=== PATIENT | female | born 2000 | race Caucasian/White ===

== ENCOUNTER 2020-03-22 11:31 | Emergency (ER) | payer BC, SELFPAY ==
--- NOTE | 2020-03-22 11:38 | ED.GENADULT ---
HPI - General Adult General Chief complaint: Upper Respiratory Infection Stated complaint: sore throat Time Seen by Provider: 03/22/20 11:38 Source: patient Mode of arrival: ambulatory Limitations: no limitations History of Present Illness HPI narrative: 19-year-old female patient presents to the [facility] with complaints of sore throat congestion for the past 2 to 3 days. Denies any fevers. Denies any chest pain shortness of breath. Patient states she was diagnosed with COVID-19 back in December 26. Patient states that she got a rapid test done yesterday and it came back positive however patient is not out of the 90-day. At this time. Patient states that she did get a flu shot this year. Patient states that she is more concerned that this might be strep due to the fact that she has had more strep before in the past Related Data Home Medications Medication Instructions Recorded Confirmed norethindrone-e.estradiol-iron 1 tablet DAILY 03/22/20 03/22/20 [Aurovela 24 Fe] Allergies Allergy/AdvReac Type Severity Reaction Status Date / Time No Known Allergies Allergy Verified 03/22/20 11:34 Review of Systems Review of Systems: Narrative: CONSTITUTIONAL: Denies fever, chills, or sweats. EYES: Denies visual changes, redness, or discharge. ENT: Denies rhinorrhea, positive congestion, positive sore throat, or otalgia. CARDIOVASCULAR: Denies chest pain, palpitations, or edema. RESPIRATORY: Denies cough or dyspnea. GASTROINTESTINAL: Denies abdominal pain, nausea, vomiting, or diarrhea. GENITOURINARY: Denies dysuria or hematuria. SKIN: Denies rash or itching. MUSCULOSKELETAL: Denies back pain, joint pain, or myalgia. NEUROLOGIC: Positive headache, denies numbness, or weakness. PSYCHIATRIC: Denies anxiety or depression. REPLACED BY [facility] Past Medical History Medical History (Updated 03/22/20 @ 11:52 by JAS Andrade) Lab test positive for detection of COVID-19 virus November 2019 Surgical History Surgical History (Updated 03/22/20 @ 11:40 by JAS Andrade) History of tonsillectomy Comments At the time of my signature I agree with nursing past medical history, surgical, social, and family history. There is no relevant family history pertinent to the presenting complaint. Exam Narrative: Exam Narrative: GENERAL: Well-appearing, well-nourished, and in no acute distress. HEAD: Normocephalic, atraumatic. No tenderness noted to frontal maxillary sinuses on palpation EYES: PERRLA and EOMI. ENT: Nares with erythema and edema noted bilaterally, no rhinorrhea or epistaxis. Mucous membranes moist. Posterior pharynx with slight erythema but no tonsils present. Bilateral TMs are clear no erythema or foreign bodies in the canal NECK: Supple. No lymphadenopathy CHEST: Clear to auscultation. No respiratory distress. HEART: Regular rate and rhythm. No murmur heard. Normal peripheral pulses. ABDOMEN: Soft, nontender, nondistended, normal active bowel sounds. EXTREMITIES: Normal range of motion. No edema. SKIN: Warm, dry, no rash. NEURO: No focal deficits. Alert and oriented x3. Course Reevaluation(s) Reevaluation #1: Reevaluated patient notified her that she is strep positive. Discussed with patient we will discharge her home with some antibiotics for the strep infection and she can take Tylenol and ibuprofen as needed for any body aches, chills or pain. Discussed with patient I do not think that she has reinfection of COVID-19 and most likely she had a positive due to the fact that the still been within the 90 days of her last infection. Discussed with patient that she should treat herself as a strep however she does have worsening symptoms despite being on antibiotics I would encourage her to follow-up with her primary doctor or go the ER. Patient verbalized understanding denies any other questions or concerns at this time. Date: 03/22/20 Time: 11:54 Vital Signs Vital signs: Vital Signs Temperature 36.6 C 03/22
[2020-03-22 11:47] VITALS: BP 125/86; PULSE 91; RESP 20; TEMP 36.6; O2SAT 100
[2020-03-22 11:51] VITALS: BP 125/86; PULSE 91; RESP 20; TEMP 36.6; O2SAT 100
== END 2020-03-22 11:55 | disposition home or self-care (01) ==
PROVIDERS: Emergency Provider Nurse Practitioner Family
DX: J02.0 Streptococcal pharyngitis (principal); Z86.19 Personal history of other infectious and parasitic diseases
CPT/HCPCS: 87880; 99213; G0463

== ENCOUNTER 2020-04-04 10:56 | Emergency (ER) | payer BC, SELFPAY ==
[2020-04-04 11:07] VITALS: BP 129/76; PULSE 93; RESP 20; TEMP 36.8; O2SAT 99
--- NOTE | 2020-04-04 11:14 | ED.URI ---
HPI - URI/Sore Throat General Chief Complaint: Upper Respiratory Infection Stated Complaint: sore throat Time Seen by Provider: 04/04/20 11:14 Source: patient and RN notes reviewed History of Present Illness HPI Narrative: 19-year-old female presents to urgent care with complaints of sinus congestion, sore throat, chills, generalized body aches since yesterday. States that she was diagnosed on March 22 with strep throat and only took 5 to [address] Bernabe primary care History of anxiety depression. Related Data Home Medications Medication Instructions Recorded Confirmed norethindrone-e.estradiol-iron 1 tablet PO DAILY 04/04/20 04/04/20 [Aurovela 24 Fe] Allergies Allergy/AdvReac Type Severity Reaction Status Date / Time No Known Allergies Allergy Verified 04/04/20 11:14 Review of Systems Review of Systems: Narrative: CONSTITUTIONAL: Denies fever. Positive for chills and body aches EYES: Denies visual changes, redness, or discharge. ENT:+ rhinorrhea, congestion, sore throat, or otalgia. CARDIOVASCULAR: Denies chest pain, palpitations, or edema. RESPIRATORY: Denies cough or dyspnea. GASTROINTESTINAL: Denies abdominal pain, nausea, vomiting, or diarrhea. GENITOURINARY: Denies dysuria or hematuria. SKIN: Denies rash or itching. MUSCULOSKELETAL: Denies back pain, joint pain, or myalgia. NEUROLOGIC: Denies headache, numbness, or weakness. All other systems reviewed are negative, except as documented in HPI. [facility] Past Medical History Medical History (Updated 04/04/20 @ 11:27 by Chel Fuller) Lab test positive for detection of COVID-19 virus November 2019 Surgical History Surgical History (Updated 03/22/20 @ 11:40 by JAS Andrade) History of tonsillectomy Comments At the time of my signature, I reviewed and agree with the nursing past medical, surgical, social, and family history. There is no relevant family history pertinent to the patient complaint. Exam Const: General: alert and ill appearing Nutritional Appearance: well nourished and obese Orientation/consciousness: patient oriented x3 Limitations: no limitations HENMT: Ears: TM's normal bilaterally General nose exam: Nasal discharge present Face and sinus: normal facial exam and sinus tenderness Mouth: Yes moist mucous membranes Teeth and gingiva: dentition normal Other: large amount of postnasal drip. Bilateral nasal tuberants red and boggy Eyes: Conjunctivae: conjunctivae normal Pupils: Equal, round and reactive pupils present Direct Ophthalmoscopy: no photophobia and No photophobia Neck: Neck: normal visual inspection, no lymphadenopathy and no meningeal signs Chest: Chest palpation & inspection: normal inspection of the chest Resp: Effort & Inspection: normal respiratory effort Auscultation: clear to auscultation bilaterally Cardio: Rate: regular rate Rhythm: regular rhythm Heart sounds: no murmurs GI: Inspection: non-distended GI Palp: Yes Soft to palpation and No Tenderness to palpation present (GI) : General: No no CVA tenderness Skin: General skin exam: normal color and no jaundice Rashes: no rashes Neuro: General: patient oriented x3, moves all extremities and no focal motor deficits Speech: normal speech Gait exam (Neuro): Normal gait present Extrem: General: normal to inspection and no edema Psych: Appearance: grossly normal and well kempt Mental Status: mental status grossly normal Affect: normal affect Attitude: cooperative Thought content: Yes Normal thought content present Course Vital Signs Vital signs: Vital Signs Temperature 98.3 F 04/04/20 11:07 Pulse Rate 93 04/04/20 11:07 Respiratory Rate 20 04/04/20 11:07 Blood Pressure 129/76 04/04/20 11:07 Pulse Oximetry 99 04/04/20 11:07 Temperature 98.3 F 04/04/20 11:07 Pulse Rate 93 04/04/20 11:07 Respiratory Rate 20 04/04/20 11:07 Blood Pressure 129/76 04/04/20 11:07 Pulse Oxime
== END 2020-04-04 11:31 | disposition home or self-care (01) ==
PROVIDERS: Emergency Provider Nurse Practitioner
DX: J01.90 Acute sinusitis, unspecified (principal); J02.9 Acute pharyngitis, unspecified
CPT/HCPCS: 87081; 87804; 87880; 99213; G0463

== ENCOUNTER 2020-09-24 14:24 | Emergency (ER) | payer BC, SELFPAY ==
--- NOTE | ~2020-09-24 | XR_ITS ---
EXAMINATION: XR knee LT min 4V DATE: 09/24/2020 14:52 INDICATION: Left knee injury. TECHNIQUE: 5 views of left knee were obtained. COMPARISON: None. FINDINGS: Bone alignment is normal. No fracture. Joint spaces are well maintained. There is no knee j oint effusion. There is anterior soft tissue swelling. IMPRESSION: 1. No fracture. Reviewed, dictated and finalized at location A. IMPRESSION: 1. No fracture.
[2020-09-24 14:35] VITALS: BP 139/94; PULSE 93; RESP 16; TEMP 36.8; O2SAT 99
--- NOTE | 2020-09-24 14:40 | ED.LOWEXIN ---
HPI - Extremity Injury (Lower) General Chief Complaint: Extremity Injury, Lower Stated Complaint: Lt knee Source: patient Mode of arrival: ambulatory Limitations: no limitations History of Present Illness HPI Narrative: Patient is a 20-year-old female who presents complaining of left knee pain. Patient reports she was celebrating her 20st birthday last p.m. and fell hitting her left knee on concrete. She reports increased pain with palpation and ambulation. She denies taking any [id number]-opb-pbtqjtx medications prior to arrival. She denies all other injuries. Patient has no significant medical history. MD complaint: knee injury Related Data Home Medications Medication Instructions Recorded Confirmed norethindrone-e.estradiol-iron 1 tablet PO DAILY 04/04/20 04/04/20 [Aurovela 24 Fe] Allergies Allergy/AdvReac Type Severity Reaction Status Date / Time No Known Allergies Allergy Verified 04/04/20 11:14 Review of Systems Review of Systems: Narrative: CONSTITUTIONAL: Denies fever, chills, or sweats. EYES: Denies visual changes, redness, or discharge. ENT: Denies rhinorrhea, congestion, sore throat, or otalgia. CARDIOVASCULAR: Denies chest pain, palpitations, or edema. RESPIRATORY: Denies cough or dyspnea. GASTROINTESTINAL: Denies abdominal pain, nausea, vomiting, or diarrhea. GENITOURINARY: Denies dysuria or hematuria. SKIN: Denies rash or itching. MUSCULOSKELETAL: Reports left knee pain NEUROLOGIC: Denies headache, numbness, dizziness, or weakness. PSYCHIATRIC: Denies anxiety or depression. PMFSH Past Medical History Medical History Lab test positive for detection of COVID-19 virus November 2019 Surgical History Surgical History History of tonsillectomy Social History Social History (Updated 09/24/20 @ 14:42 by JAS Milian) Smoking status: Current every day smoker Tobacco type: e-cigarettes/vaping Alcohol intake: current Alcohol use details: Social Substance use: current Substance use type: marijuana Living arrangements: with family Occupation/Education: occupation Gender identity (if verbalized by the patient): Female Exam Narrative: Exam Narrative: GENERAL: Well-appearing, well-nourished, and in no acute distress. HEAD: Normocephalic, atraumatic. EYES: EOMI. No redness or drainage. Conjunctiva are normal. ENT: Mucous membranes pink and moist. CHEST: No respiratory distress. HEART: Regular rate and rhythm. EXTREMITIES: Mild edema ecchymosis to the left knee, no visible deformity, full range of motion, distal sensation intact SKIN: Warm, dry, no rash. NEURO: No focal deficits. Alert and oriented x3. Gait steady. PSYCH: Normal affect. No signs of depression or anxiety. Course Vital Signs Vital signs: Vital Signs Temperature 36.8 C 09/24/20 14:35 Pulse Rate 93 09/24/20 14:35 Respiratory Rate 16 09/24/20 14:35 Blood Pressure 139/94 H 09/24/20 14:35 Pulse Oximetry 99 09/24/20 14:35 Temperature 36.8 C 09/24/20 14:35 Pulse Rate 93 09/24/20 14:35 Respiratory Rate 16 09/24/20 14:35 Blood Pressure 139/94 H 09/24/20 14:35 Pulse Oximetry 99 09/24/20 14:35 Reviewed-patient is informed that they may have pre-hypertension or hypertension based on a blood pressure reading. I recommend the patient call the primary care provider listed on their discharge instructions or a physician of their choice this week to arrange follow-up for further evaluation of possible pre-hypertension or hypertension. MDM - Extremity Injury (Lower) MDM Narrative Medical decision making narrative: Patient's x-ray is negative for acute injury. Discussed with patient most musculoskeletal. Veto wrap applied, discussed pain medication as well as use of ice for comfort. Patient agrees with plan of care. Patient is stable for discharge home with outpatient foll
== END 2020-09-24 15:11 | disposition home or self-care (01) ==
PROVIDERS: Emergency Provider Nurse Practitioner
DX: M25.562 Pain in left knee (principal); F17.200 Nicotine dependence, unspecified, uncomplicated; Z86.16 Personal history of COVID-19
CPT/HCPCS: 73564; 99213; G0463

== ENCOUNTER → 2020-11-16 12:20 | Outpatient (CLI) | payer BC, SELFPAY ==
--- NOTE | ~2020-11-16 | XR_ITS ---
XR lumbar spine 2-3V DATE: 11/16/2020 12:59 INDICATION: Lumbar back pain, bilateral sacroiliac pain TECHNIQUE: Standing AP, lateral and coned lateral lumbosacral views COMPARISON: None FINDINGS: There is mild levoscoliosis of the lower thoracic and lumbar spine. No fracture or bone destruction is detected. The lumbar pedicles are intact. Lumbar and lumbosacral i nterspaces are well preserved. The sacroiliac joints appear normal. IMPRESSION: Mild levoscoliosis Reviewed, dictated and finalized at location A. IMPRESSION: Mild levoscoliosis
--- NOTE | ~2020-11-16 | XR_ITS ---
XR thoracic spine 2V DATE: 11/16/2020 12:59 INDICATION: Back pain TECHNIQUE: Standing AP, lateral and swimmer views COMPARISON: None FINDINGS: Mild dextroscoliosis. No fracture or dislocation or bone destruction. The thoracic pedicles are intact. No paraspinal soft tissue thickening. Thoracic interspaces appear preserved. IMPRESSION: Mild dextro scoliosis Reviewed, dictated and finalized at location A. IMPRESSION: Mild dextro scoliosis
--- NOTE | ~2020-11-16 | XR_ITS ---
XR_CERV2-3V_CR DATE: 11/16/2020 12:59 INDICATION: Cervical, thoracic and lumbar back pain. Bilateral sacroiliac pain. TECHNIQUE: Standing AP, lateral, open-mouth and swimmer views COMPARISON: None FINDINGS: There is straightening of the cervical spine. C1 and C2 are normally aligned and the odonto id process is intact. No fracture or dislocation or locked facet. No prevertebral soft tissue swellin g. Cervical interspaces are preserved. IMPRESSION: Straightening of the cervical spine, which may be due to muscle spasm Reviewed, dictated and finalized at Location A. Reviewed, dictated and finalized at location A. IMPRESSION: Straightening of the cervical spine, which may be due to muscle spa sm
--- NOTE | ~2020-11-16 | XR_ITS ---
XR pelvis 1-2V DATE: 11/16/2020 12:59 INDICATION: Bilateral sacroiliac pain. Back pain. TECHNIQUE: Standing AP pelvis COMPARISON: None FINDINGS: The pubic symphysis and sacroiliac joints are intact. Hip joint spaces are symmetric and we ll preserved. No pelvic fracture or bone destruction. No hip fracture or dislocation is detected. IMPRESSION: Negative pelvis Reviewed, dictated and finalized at location A. IMPRESSION: Negative pelvis
== END ==
PROVIDERS: Visit Provider Chiropractor
DX: M54.2 Cervicalgia (principal); M54.5 Low back pain; M54.6 Pain in thoracic spine; M41.86 Other forms of scoliosis, lumbar region; M41.84 Other forms of scoliosis, thoracic region; M53.82 Other specified dorsopathies, cervical region
CPT/HCPCS: 72040; 72070; 72100; 72170

== ENCOUNTER 2020-12-19 13:07 | Emergency (ER) | payer BC, SELFPAY ==
[2020-12-19 13:21] VITALS: BP 145/93; PULSE 98; RESP 18; TEMP 37.3; O2SAT 100
--- NOTE | 2020-12-19 13:41 | ED.URI ---
HPI - URI/Sore Throat General Chief Complaint: Upper Respiratory Infection Stated Complaint: flu like symptoms Source: patient and RN notes reviewed Limitations: no limitations History of Present Illness HPI Narrative: The vaccinated patient, occasional drinker/vaper student recruiter, presents with infectious symptoms. Patient states she has 1/2-week history since the weekend myalgias with headache and large muscle cramps associated with definite loose, diarrheal stools. Symptoms are mild, partially relieved with Motrin. No fever measured, cough, sore throat , vomiting; no loss of taste/smell, CP, rash, S OB. Related Data Home Medications Medication Instructions Recorded Confirmed drospirenone-ethinyl estradiol 1 tablet PO DAILY 12/19/20 12/19/20 Allergies Allergy/AdvReac Type Severity Reaction Status Date / Time No Known Allergies Allergy Verified 12/19/20 13:38 Review of Systems Review of Systems: The patient has been informed that they may have pre-hypertension or Hypertension based on a BP reading in the department. I recommend that the patient call the primary care provider listed on their discharge instructions or a physician of their choice this week to arrange follow up for further evaluation of possible pre-hypertension or Hypertension General/Constitutional: No weight loss,fever Eyes: N0: Redness,discharge Ears/Nose/Throat: No: Epistaxis,ear discharge Respiratory: Denies: Hemoptysis Gastrointestinal: No Vomiting, Bleeding-rectal Skin: No Lumps, eruption Neurologic: No Focal Weakness,Sz Hematologic: Denies: Petechiae/Purpura Psychiatric: No: Suicida ideationl All Other Systems: Reviewed and Negative [facility] Past Medical History Medical History Lab test positive for detection of COVID-19 virus November 2019 Surgical History Surgical History History of tonsillectomy Social History Social History (Updated 09/24/20 @ 14:42 by JAS Milian) Smoking status: Current every day smoker Tobacco type: e-cigarettes/vaping Alcohol intake: current Alcohol use details: Social Substance use: current Substance use type: marijuana Gender identity (if verbalized by the patient): Female Comments At time of signature, agree with nursing past medical, surgical, social and family history. There is no relevant family history pertinent to the presenting complaint Exam Narrative: General Appearance: Well appearing, overweight/ Well nourished EYE: PERRLA, Conjunctiva clear Ears: Auditory canal normal, TM normal Nose: Rhinorrhea, Mucousal erythema Mouth/Throat: MM moist, Uvula midline, Pharyngeal erythema Neck: Supple, No adenopathy Respiratory: No respiratory distress, Breath sounds equal, Clear to auscultation Cardiovascular: RRR, No JVD Musculoskeletal: Non tender, Normal strength Skin: Warm, Dry Neurological: A&O x3, CN II-XII intact Psychiatric: Normal mood, Normal affect Course Vital Signs Vital signs: Vital Signs Temperature 99.1 F 12/19/20 13:21 Pulse Rate 98 12/19/20 13:21 Respiratory Rate 18 12/19/20 13:21 Blood Pressure 145/93 H 12/19/20 13:21 Pulse Oximetry 100 12/19/20 13:21 Temperature 99.1 F 12/19/20 13:21 Pulse Rate 98 12/19/20 13:21 Respiratory Rate 18 12/19/20 13:21 Blood Pressure 145/93 H 12/19/20 13:21 Pulse Oximetry 100 12/19/20 13:21 MDM - URI/Sore Throat Lab Data Labs: Lab Results 12/19/20 Range/Units 13:37 POC SARS CoV-2 Ag Negative (Negative) Discharge Plan Discharge Clinical Impression: Diarrhea Qualifiers: Diarrhea type: unspecified type Qualified Code(s): R19.7 - Diarrhea, unspecified Patient Disposition: Home, Self-Care Condition: Stable Additional Instructions: You may try OTC preparations -like Imodium for diarrhea, NSAID for WOLF , chills etc.
== END 2020-12-19 14:00 | disposition home or self-care (01) ==
PROVIDERS: Emergency Provider Emergency Medicine; PCP Hospitalist
DX: R19.7 Diarrhea, unspecified (principal); Z20.822 Contact with and (suspected) exposure to COVID-19; F17.200 Nicotine dependence, unspecified, uncomplicated; Z86.16 Personal history of COVID-19
CPT/HCPCS: 87426; 99213; C9803; G0463

== ENCOUNTER → 2020-12-20 08:09 | Outpatient (CLI) | payer BC, SELFPAY ==
[2020-12-20 17:06] LABS: SARS-CoV-2 RNA PCR Negative
== END ==
PROVIDERS: PCP Hospitalist; Visit Provider Emergency Medicine
DX: R19.7 Diarrhea, unspecified (principal); Z20.822 Contact with and (suspected) exposure to COVID-19
CPT/HCPCS: C9803; U0003; U0005

== ENCOUNTER 2021-08-02 10:50 | Emergency (ER) | payer BC, SELFPAY ==
[2021-08-02 11:22] VITALS: BP 123/75; PULSE 95; RESP 18; TEMP 36.6; O2SAT 100
--- NOTE | 2021-08-02 11:53 | ED.GENADULT ---
HPI - General Adult General Chief complaint: Upper Respiratory Infection Stated complaint: Cough,Headache,Fatigue,Sore Throat Source: patient Mode of arrival: ambulatory Limitations: no limitations History of Present Illness HPI narrative: Patient is a 20-year-old female presents to the [facility] via POV for evaluation of cold symptoms that have been present for 5 days. Additionally, she reports sore throat, chills, dry cough, and rhinorrhea. Swallowing worsens throat pain. She had a negative home COVID test. 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 Denies known exposure to sick contacts. Patient is fully vaccinated against COVID-19 but influenza. Related Data Home Medications Medication Instructions Recorded Confirmed drospirenone-ethinyl estradiol 1 tablet PO DAILY 12/19/20 08/02/21 quetiapine 100 mg PO DAILY 08/02/21 08/02/21 Allergies Allergy/AdvReac Type Severity Reaction Status Date / Time No Known Allergies Allergy Verified 08/02/21 11:21 Review of Systems Review of Systems: Denies fever, change in appetite, poor p.o. intake, weight loss, sinus problems, nasal congestion, ear pain, abdominal pain, nausea, vomiting, diarrhea, shortness of breath, cyanosis, hemoptysis, chest pain, heart palpitations. PENDING SALE TO [facility] Past Medical History Medical History Lab test positive for detection of COVID-19 virus November 2019 Surgical History Surgical History History of tonsillectomy Social History Social History Smoking status: Current every day smoker Tobacco type: e-cigarettes/vaping Alcohol intake: current Alcohol use details: Social Substance use: current Substance use type: marijuana Gender identity (if verbalized by the patient): Female Comments I have reviewed and agree with the patient's past medical, surgical, social, and family hx as documented by the RN. There is no relevant family history pertinent to the presenting complaint. Exam Narrative: GENERAL: Well-appearing, well-nourished, and in no acute distress. HEAD: Normocephalic, atraumatic. No sinus tenderness or facial swelling appreciated. EYES: PERRLA and EOMI. No evidence of erythema, swelling, or drainage. ENT: Bilateral external ears and ear canals normal. Bilateral TMs are normal.No TM perforation. Nares clear, no rhinorrhea or epistaxis. Bilateral turbinates without erythema/ swelling. Mucous membranes moist and pink. Uvula is midline without erythema and swelling. Mild erythema noted to posterior pharynx and bilateral tonsil otherwise normal. Breath odor and voice normal. NECK: Supple. No Lymphadenopathy or nuchal rigidity appreciated. CHEST: Bilateral lung nova are clear to auscultation. No respiratory distress. No evidence of cough or pleuritic cp upon examination. HEART: Regular rate and rhythm. No murmur, gallop, or rub heard. EXTREMITIES: Normal range of motion. No edema. SKIN: Warm, dry, no rash. NEURO: No focal deficits. Alert and oriented x3. Course Course Level of Care: Express Care Visit Vital Signs Vital signs: Vital Signs Temperature 97.9 F 08/02/21 11:22 Pulse Rate 95 08/02/21 11:22 Respiratory Rate 18 08/02/21 11:22 Blood Pressure 123/75 08/02/21 11:22 Pulse Oximetry 100 08/02/21 11:22 Temperature 97.9 F 08/02/21 11:22 Pulse Rate 95 08/02/21 11:22 Respiratory Rate 18 08/02/21 11:22 Blood Pressure 123/75 08/02/21 11:22 Pulse Oximetry 100 08/02/21 11:22 Reviewed Medical Decision Making Differential Diagnosis Differential Diagnosis: Allergic rhinitis, ABRS, acute viral sinusitis, strep pharyngitis, nasopharyngitis, bronchitis, pneumonia, AOM, otitis externa, viral URI, influenza, covid-19 Medical Recor
== END 2021-08-02 12:08 | disposition home or self-care (01) ==
PROVIDERS: Emergency Provider Nurse Practitioner Family; PCP Hospitalist
DX: J06.9 Acute upper respiratory infection, unspecified (principal); F17.290 Nicotine dependence, other tobacco product, uncomplicated
CPT/HCPCS: 87081; 87804; 87880; 99213; G0463

== ENCOUNTER 2021-12-21 18:42 | Emergency (ER) | payer BC, SELFPAY ==
--- NOTE | 2021-12-21 18:43 | ED.URI ---
HPI - URI/Sore Throat General Chief Complaint: Upper Respiratory Infection Stated Complaint: Sore Throat,Dizziness,Fatigue Time Seen by Provider: 12/21/21 18:43 Source: patient Mode of arrival: ambulatory Limitations: no limitations History of Present Illness HPI Narrative: Ms. Cavazos is a 21-year-old female patient presenting to the clinic today with complaints of sore throat, dizziness, and fatigue x1 day. She reports her symptoms began yesterday. States that she has had fever as well. Has had a history of mono and COVID in 2019. History of tonsillectomy. 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 Patient denies any rash, headache, visual changes, shortness of breath, chest pain, palpitations, nausea, vomiting, diarrhea, constipation, abdominal pain, or any urinary issues. [facility] Past Medical History Medical History Lab test positive for detection of COVID-19 virus November 2019 Surgical History Surgical History H/O wisdom tooth extraction History of tonsillectomy Family History Family History Other Diabetes mellitus Hypertension Leukemia Social History Social History Smoking status: Current every day smoker Tobacco type: e-cigarettes/vaping Alcohol intake: current Alcohol use details: Social Substance use: current Substance use type: marijuana Gender identity (if verbalized by the patient): Female Comments At the time of my signature, I reviewed and agree with the nursing past medical, surgical, social, and family history. There is no relevant family history pertinent to the patient complaint. Exam Narrative: General: Well-developed, obese, in no apparent distress Head: Normocephalic, atraumatic Eyes: Pupils equally round and reactive to light bilaterally, EOM intact, sclera and conjunctive clear, no discharge, lids normal Ears: TMs intact and dull, ear canals clear, no drainage, grossly hearing normal. Nose: Nares patent, clear nasal discharge, mild inflammation, no sinus tenderness. Mouth: Oropharynx without lesions or masses, good dentition, MMM. Oropharynx red, postnasal drip Neck: Supple, trachea midline, enlargement of anterior cervical nodes, no thyroid masses or goiter palpable. Cardio: Regular rate and rhythm, s1 and s2 normal, no murmur appreciated. Resp: Clear to auscultation bilaterally anteriorly and posteriorly, no rhonchi, rales, wheezing or rubs Course Course Emergency Course: Portions of this record may have been created with voice recognition software. Level of Care: Express Care Visit Vital Signs Vital signs: Vital Signs Temperature 38.7 C H 12/21/21 18:50 Pulse Rate 114 H 12/21/21 18:50 Respiratory Rate 20 12/21/21 18:50 Blood Pressure 145/92 H 12/21/21 18:50 Pulse Oximetry 99 12/21/21 18:50 Oxygen Delivery Room Air 12/21/21 18:50 Temperature 38.7 C H 12/21/21 18:50 Pulse Rate 114 H 12/21/21 18:50 Respiratory Rate 20 12/21/21 18:50 Blood Pressure 145/92 H 12/21/21 18:50 Pulse Oximetry 99 12/21/21 18:50 Oxygen Delivery Room Air 12/21/21 18:50 Vital signs reviewed MDM - URI/Sore Throat MDM Narrative Medical decision making narrative: At the time of visit patient is resting comfortably on the exam table.
[2021-12-21 18:50] VITALS: BP 145/92; PULSE 114; RESP 20; TEMP 38.7; O2SAT 99
[2021-12-22 18:50] LABS: SARS-CoV-2 RNA PCR Negative
== END 2021-12-21 19:27 | disposition home or self-care (01) ==
PROVIDERS: Emergency Provider Nurse Practitioner Family; PCP Hospitalist
DX: B34.9 Viral infection, unspecified (principal); F17.290 Nicotine dependence, other tobacco product, uncomplicated; Z86.16 Personal history of COVID-19; Z20.822 Contact with and (suspected) exposure to COVID-19
CPT/HCPCS: 87081; 87426; 87804; 87880; 99213; C9803; G0463; U0003; U0005

== ENCOUNTER 2023-03-21 09:39 | Emergency (ER) | payer BC, SELFPAY ==
--- NOTE | ~2023-03-21 | XR_ITS ---
XR ankle RT min 3V DATE: 03/21/2023 10:30 INDICATION: Fall last night; lateral swelling TECHNIQUE: 4 views COMPARISON: None FINDINGS: There is prominent lateral ankle soft tissue swelling. There is a linear oblique fracture of the lateral malleolus with no significant displacement or angul ation. The medial and posterior malleoli are intact. Ankle mortise appears preserved. IMPRESSION: Nondisplaced linear oblique lateral malleolar fracture with prominent overlying soft tiss ue swelling Reviewed, dictated and finalized at location A. [facility] IMPRESSION: Nondisplaced linear oblique lateral malleolar fracture with promine nt overlying soft tissue swelling
[2023-03-21 10:20] VITALS: BP 121/81; PULSE 116; RESP 18; TEMP 36.6; O2SAT 98
--- NOTE | 2023-03-21 10:20 | ED.LOWEXIN ---
HPI - Extremity Injury (Lower) General Chief Complaint: Extremity Injury, Lower Stated Complaint: lower extremity injury/fall Time Seen by Provider: 03/21/23 10:20 Source: patient Mode of arrival: ambulatory Limitations: no limitations History of Present Illness HPI Narrative: Liv is a 22-year-old female patient presenting to the clinic today with complaints of right ankle injury after falling at midnight last night. She reports that she slipped and fell injuring the right ankle. [place] it pop twice. Is able to bear some weight but is very painful to walk. Related Data Allergies Allergy/AdvReac Type Severity Reaction Status Date / Time No Known Allergies Allergy Verified 06/25/22 11:07 Review of Systems Review of Systems: Pertinent positives per HPI. Patient denies any fever, chills, rash, headache, visual changes, dizziness, cough, runny nose, sore throat, shortness of breath, chest pain, palpitations, nausea, vomiting, diarrhea, constipation, abdominal pain, or any urinary issues. [facility] Past Medical History Medical History Irregular periods Lab test positive for detection of COVID-19 virus November 2019 Sexually transmissible disease Surgical History Surgical History H/O wisdom tooth extraction History of tonsillectomy Family History Family History Other Diabetes mellitus Hypertension Leukemia Social History Social History Smoking status: Current every day smoker Tobacco type: e-cigarettes/vaping Alcohol intake: current Alcohol use details: Social Substance use: current Substance use type: marijuana Living arrangements: with family Occupation/Education: student Gender identity (if verbalized by the patient): Female Sexual Orientation (if Verbalized by the Patient): Straight or Heterosexual Comments At the time of my signature, I reviewed and agree with the nursing past medical, surgical, social, and family history. There is no relevant family history pertinent to the patient complaint. Exam Narrative: General: Well-developed, obese, in no apparent distress Head: Normocephalic, atraumatic. Cardio: Regular rate and rhythm, s1 and s2 normal, no murmur appreciated. Resp: Clear to auscultation bilaterally, no rhonchi, rales, wheezing or rubs. Musculoskeletal: No deformity, tender to palpation with swelling noted over the lateral malleolus, pain with valgus and varus testing, mild pain with dorsal flexion against resistance, no pain with plantar flexion against resistance, grossly normal range of motion, muscle strength strong and equal, peripheral pulse strong, no cyanosis, normal gait and station Course Course Emergency Course: Portions of this record may have been created with voice recognition software. Level of Care: Express Care Visit Vital Signs Vital signs: Vital Signs Temperature 36.6 C 03/21/23 10:20 Pulse Rate 116 H 03/21/23 10:20 Respiratory Rate 18 03/21/23 10:20 Blood Pressure 121/81 03/21/23 10:20 Pulse Oximetry 98 03/21/23 10:20 Oxygen Delivery Room Air 03/21/23 10:20 Temperature 36.6 C 03/21/23 10:20 Pulse Rate 116 H 03/21/23 10:20 Respiratory Rate 18 03/21/23 10:20 Blood Pressure 121/81 03/21/23 10:20 Pulse Oximetry 98 03/21/23 10:20 Oxygen Delivery Room Air 03/21/23 10:20 Vital signs reviewed MDM - Extremity Injury (Lower) MDM Narrative Medical decision making narrative: At the time of visit patient is resting comfortably on the exam table. Patient appears to be nontoxic. X-ray of the right ankle was performed and shows a right nondisplaced distal fibula fracture. Supportive measures were discussed with the patient and they voiced understanding discharge instru
== END 2023-03-21 11:57 | disposition home or self-care (01) ==
PROVIDERS: Emergency Provider Nurse Practitioner Family; PCP Hospitalist
DX: S82.64XA Nondisplaced fracture of lateral malleolus of right fibula, initial encounter for closed fracture (principal); W01.0XXA Fall on same level from slipping, tripping and stumbling without subsequent striking against object, initial encounter; F17.290 Nicotine dependence, other tobacco product, uncomplicated; F12.90 Cannabis use, unspecified, uncomplicated
CPT/HCPCS: 29515; 73610; 99214; G0463

== ENCOUNTER 2023-09-02 16:23 | Outpatient (CLI) | payer BC, SELFPAY ==
[2023-09-02 16:57] LABS: Basophils Absolute Auto 0.1 K/mm3 (0.0-0.1); Basophils Percent Auto 0.5 % (0.2-1.2); Eosinophils Absolute Auto 0.1 K/mm3 (0-0.3); Eosinophils Percent Auto 0.8 % (0-4.4); Hematocrit 40.4 % (37.0-47.0); Hemoglobin 13.5 g/dL (12.0-15.0); Immature Granulocyte Absolute 0.01 K/mm3 (0.00-0.031); Immature Granulocyte Percent A 0.1 % (0-0.5); Lymphocytes Absolute Auto 3.15 K/mm3 (0.9-3.2); Lymphocytes Percent Auto 34.6 % (18.3-44.2); Mean Corpuscular HGB Conc 33.4 g/dl (32-36); Mean Corpuscular Hemoglobin 28.6 pg (26-34); Mean Corpuscular Volume 85.6 fl (80-100); Mean Platelet Volume 9.3 fl (7.4-10.4); Monocytes Absolute Auto 0.6 K/mm3 (0.1-0.6); Monocytes Percent Auto 6.2 % (2.6-8.5); Neutrophils Absolute Auto 5.3 K/mm3 (1.3-6.7); Neutrophils Percent Auto 57.8 % (45.5-73.1); Platelet Count Result 325 k/mm3 (150-375); Red Blood Count 4.72 M/mm3 (4.2-5.4); Red Cell Distribution Width 13.7 % (11.5-14.5); White Blood Count 9.1 K/mm3 (4.5-10.0)
[2023-09-03 19:59] LABS: Lupus dRVVT Screen 40 sec (< OR = 45); PTT-LA Screen 34 sec (< OR = 40)
[2023-09-04 14:14] LABS: Homocysteine 8.5 umol/L (<10.4)
[2023-09-05 22:18] LABS: Antithrombin III Activity 118 % normal (80-135)
[2023-09-09 14:34] LABS: Reference Lab Test Result Negative
[2023-09-09 15:28] LABS: Factor V (Leiden) Mutation NEGATIVE
== END 2023-09-02 16:24 | disposition home or self-care (01) ==
LOC: ANHLAB 16:26
PROVIDERS: PCP Hospitalist; Visit Provider Nurse Practitioner Family
DX: D68.59 Other primary thrombophilia (principal)
CPT/HCPCS: 36415; 81241; 81291; 83090; 85025; 85300; 85303; 85306; 85613; 85730; 86146

== ENCOUNTER 2023-09-16 10:51 | Outpatient (CLI) | payer BC, SELFPAY ==
--- NOTE | ~2023-09-16 | US_ITS ---
EXAMINATION:US venous doppler LE RT INDICATION:DVT follow-up. Patient on blood thinners. TECHNIQUE: Multiple grayscale, color flow and Doppler images of the right lower extremity deep venous systems were obtained and reviewed. COMPARISON:No prior studies for comparison. FINDINGS: The common femoral, superficial femoral and popliteal veins demonstrate normal respiratory variation, augmentation and compressibility. Color flow is also seen within the posterior tibial, pe roneal, greater saphenous and profunda veins. IMPRESSION: 1: No lower extremity deep venous thrombosis. Reviewed, dictated and finalized at location B.
== END 2023-09-16 10:52 | disposition home or self-care (01) ==
PROVIDERS: PCP Hospitalist; Visit Provider Nurse Practitioner Family
DX: I82.4Z1 Acute embolism and thrombosis of unspecified deep veins of right distal lower extremity (principal)
CPT/HCPCS: 93971

== ENCOUNTER 2023-10-05 10:00 | Emergency (ER) | payer BC, SELFPAY ==
[2023-10-05 10:06] VITALS: BP 144/82; PULSE 90; RESP 20; TEMP 36.9; O2SAT 100
[2023-10-05 10:07] VITALS: BP 144/82; PULSE 90; RESP 20; TEMP 36.9; O2SAT 100
[2023-10-05 10:27] LABS: EDSTREPNEGPOS1 Presumptive Negative
--- NOTE | 2023-10-05 10:29 | ED.URI ---
HPI - URI/Sore Throat General Chief Complaint: Upper Respiratory Infection Stated Complaint: throat Time Seen by Provider: 10/05/23 10:21 Source: patient and RN notes reviewed Mode of arrival: ambulatory Limitations: no limitations History of Present Illness HPI Narrative: Patient presents today complaining of a 2 day history of sore throat postnasal drip. Denies any additional symptoms to include cough, congestion, rhinorrhea, fever. No known sick contacts. Currently rates her pain 6/10 and has been taking Tylenol and ibuprofen without much relief. History of tonsillectomy. Related Data Home Medications Medication Instructions Recorded Confirmed minocycline 100 mg capsule 100 mg PO BID 10/05/23 10/05/23 Allergies Allergy/AdvReac Type Severity Reaction Status Date / Time No Known Allergies Allergy Verified 10/05/23 10:07 Review of Systems Review of Systems: CONSTITUTIONAL: Denies body aches, fever, chills, or sweats. EYES: Denies visual changes, redness, or discharge. ENT: Denies rhinorrhea, congestion, or otalgia.+ sore throat, postnasal drip CARDIOVASCULAR: Denies chest pain, palpitations, or edema. RESPIRATORY: Denies cough or dyspnea. GASTROINTESTINAL: Denies abdominal pain, nausea, vomiting, or diarrhea. GENITOURINARY: Denies dysuria or hematuria. SKIN: Denies rash, itching, or wounds. MUSCULOSKELETAL: Denies back pain, joint pain, or myalgia. NEUROLOGIC: Denies headache, numbness, tingling, or weakness. PSYCH: Denies depression or anxiety. [facility] Past Medical History Medical History Blood clot in leg right calf History of blood clots Irregular periods Lab test positive for detection of COVID-19 virus November 2019 Sexually transmissible disease Surgical History Surgical History H/O wisdom tooth extraction History of tonsillectomy Family History Family History Other Diabetes mellitus Hypertension Leukemia Social History Social History Smoking status: Current every day smoker Tobacco type: e-cigarettes/vaping Alcohol intake: current Alcohol use details: Social Substance use: current Substance use type: marijuana Current Housing: Decline to Answer Concerned About Future Housing: Decline to Answer Difficulty Paying Gas/Electric Bills: Decline to Answer Difficulty Paying for Meds: Decline to Answer Currently Unemployed: Decline to Answer Education: Decline to Answer Difficulty w/ Childcare or Family Care: Decline to Answer Living arrangements: with family Occupation/Education: student Gender identity (if verbalized by the patient): Female Sexual Orientation (if Verbalized by the Patient): Straight or Heterosexual Comments At time of signature, I have reviewed and agree with nursing past medical, surgical, social and family history unless otherwise noted. Please see nursing chart for further information. There is no relevant family history pertinent to the presenting complaint Exam Narrative: GENERAL: Well-appearing, well-nourished, and in no acute distress. HEAD: Normocephalic, atraumatic. EYES: EOMI. No redness or drainage. Conjunctivae normal. ENT: Mucous membranes pink and moist. Nares clear. No rhinorrhea. TMs normal bilaterally. Throat erythematous without edema or exudate. Uvula midline. NECK: Normal AROM. Supple. No lymphadenopathy. CHEST: No respiratory distress. Clear to auscultation. HEART: Regular rate and rhythm. No murmur appreciated. EXTREMITIES: Normal range of motion. No edema. SKIN: Warm, dry, no rash. Capillary refill normal. Normal skin turgor. NEURO: No focal deficits. Alert and oriented x3. Gait steady. PSYCH: Normal affect. No signs of depression or anxiety. Course
== END 2023-10-05 10:32 | disposition home or self-care (01) ==
PROVIDERS: Emergency Provider Nurse Practitioner; PCP Hospitalist
DX: J02.9 Acute pharyngitis, unspecified (principal); F17.290 Nicotine dependence, other tobacco product, uncomplicated; Z86.2 Personal history of diseases of the blood and blood-forming organs and certain disorders involving the immune mechanism
CPT/HCPCS: 87081; 87880; 99213; G0463